=== PATIENT | male | born 1925 | race Caucasian/White ===

== ENCOUNTER 2016-06-27 15:56 | Inpatient (IN) | payer MEDICARE ==
--- NOTE | ~2016-06-27 | US77 ---
[facility] A Service of [facility] RADIOLOGY TEXT RESULTS PATIENT: EVA MELENDEZ LOCATION: [facility] 576-01 : [birth year] UNIT #: [id number] AGE: [address]: Delon Chavira MD SEX: M ORDER DR: [id number] [facility]. [place], [place] [address] [id number] I MR#: [id number] Acc #: [id number] NAME: EVA MELENDEZ : 1925 SEX: M STUDY DATE/TIME: 06/29/2016 9:09 UNIT: [facility] ROOM: [facility] STUDY DESCRIPTION: US Kidney Bilateral Complete Attending Physician: Delon Chavira M.D. Referring Physician: Delon Chavira M.D. Ordering Physician: Delon Chavira M.D. Primary Care Physician: Javier Moya M.D. MEDICAL IMAGING REPORT This report is preliminary unless electronic signature is present EXAM Renal ultrasound 06/29/2016 HISTORY 89-year-old male with acute renal failure and left flank pain for 2 days. Hypertension. Hyperlipidemia. BUN 44, creatinine 1.5, GFR 41. COMPARISON None. FINDINGS Real time rodriguez-scale and color Doppler imaging of the kidneys and urinary bladder was performed. Both kidneys are normal in size and contour. The right kidney measures 9.9 cm in length. The left kidney measures 9.3 cm in length. Cortical thickness and echogenicity are preserved bilaterally. No solid or cystic renal masses. No hydronephrosis. No pathologic calcifications. Urinary bladder is unremarkable. Bilateral ureteral jets. IMPRESSION Unremarkable renal ultrasound. Dictated by... Luan Contreras M.D. THIS IS AN ELECTRONICALLY VERIFIED REPORT Luan Contreras M.D. at 06/29/2016 2:13 PM Alejandrina TD: 06/29/2016 11:18 [facility] A Service of [facility] RADIOLOGY TEXT RESULTS PATIENT: EVA MELENDEZ LOCATION: [facility] 576-01 : [birth year] UNIT #: [id number] AGE: [address]: Delon Chavira MD SEX: M ORDER DR: JOB #: [id number] MEDICAL IMAGING REPORT Page 1 of 1 COPY
--- NOTE | ~2016-06-27 | HP ---
Unit #: [id number] #: [id number] Patient: EVA NICKERSON [id number] [facility]. [place], [place] [address] [id number] I MR#: [id number] NAME: EVA NICKERSON ROOM: 576 Age: Sex: M Admission Date: 06/27/2016 : 1925 Attending Physician: Delon Chavira M.D. Referring Physician: Delon Chavira M.D. Primary Care Physician: Javier Moya M.D. HISTORY AND PHYSICAL REASON FOR ADMISSION Congestive heart failure. HISTORY OF PRESENT ILLNESS Mr. Nickerson is an 89-year-old white male I had seen about five years ago for congestive heart failure and atrial fibrillation, but he was lost to followup as he moved to [place], [place] for his medical care. He returns today because of worsening leg edema, increasing abdominal girth, shortness of breath on minimal exertion. He cannot walk more than 100 feet on a level surface without having to stop for shortness of breath. He sleeps on two to three pillows and frequently awakens from sleep during the night for shortness of breath, accompanied by abdominal bloating and belching and this has worsened over the last year or so to an extent that he things he is getting weaker and would like help. On repeated questioning he denies any chest discomfort to suggest angina pectoris. He has not had any syncope, near syncope, but complains of frequent episodes of palpitations. There is no history of previous myocardial infarction or stroke, he was told to have a transient ischemic attack a number of years ago, probably related to cardioembolic event in view of atrial fibrillation. The patient is known to have atrial fibrillation for a number of years and underwent a permanent pacemaker implantation at least five years ago. He was told to have pulmonary hypertension, the etiology of which was never determined. PAST MEDICAL HISTORY 1. Chronic kidney disease. 2. Hypertension. 3. Hepatic enlargement. 4. Ascites. 5. Permanent atrial fibrillation. 6. 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 He was advised to undergo chemotherapy, but after consultation with his form tamper and oncologist it was decided not to pursue chemotherapy and status of metastatic disease, if any, is not known. SOCIAL HISTORY The patient stopped smoking a number of years ago and he thinks he never abused alcohol, though he does drink an alcoholic beverage reasonably regularly. Unit #: [id number] #: [id number] Patient: EVA NICKERSON FAMILY HISTORY Unremarkable. PHYSICAL EXAMINATION VITALS: Blood pressure 110/60. Atrial fibrillation is noted with a controlled ventricular rate of about 80 per minute. Jugular veins are distended to angles of mandible. There is 4+ leg edema up to the knees with open seeping wound in the left anterior leg, 4+ leg edema is noted on the right. CHEST: Good air entry bilaterally without any rales or rhonchi. HEART: Apical impulse is displaced out to the left anterior axillary line area. Both heart sounds are normal. Pulmonary component of the second heart sound is loud. There is a grade 1/6 systolic murmur at the apex. No diastolic murmurs are audible. ABDOMEN: Liver edges palpable 6 cm below the right costal margin, is pulsatile in nature and firm in consistency. There is a moderate amount of ascites. RECTAL: Not done. NEUROLOGIC: INSPECTOR BARREL examination is within normal limits. ASSESSMENT 1. Biventriculare failure. 2. Permanent atrial fibrillation. 3. Permanent pacemaker implantation. 4. History of pulmonary hypertension. 5. History of hyperlipidemia. 6. Cannot rule out underlying coronary artery disease. 7. Hepatomegaly and ascites secondary to pulmonary hypertension causing right heart failure, cannot rule out ethanol induced hepatic disease. 8. 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 PLAN The patient will be started on intravenous diuretic Bumex, fluid restriction will be started, clinically he appears to have systolic dysfunction and small dose dobutamine would be given. An echocardiogram and Doppler study will be evaluated for left ventricular function and pulmonary hypertension. Afterload reduction will be continued with lisinopril, but may have to add hydralazine if the blood pressure stabilizes. The patient will continue on small dose of beta jazmine to control heart rate. Further recommendations will depend upon results of the echocardiogram. I will request Drs. Zapien and Susan to manage his renal problems. Dictated by Reji Knutson TD: 06/27/2016 15:46 JOB #: [id number] CC: Reji Knutson M.D. Unit #: [id number] #: [id number] Patient: EVA NICKERSON HISTORY AND PHYSICAL Page 1 of 1 X Delon Chavira MD X HISTORY AND PHYSICAL
--- NOTE | ~2016-06-27 | EKG ---
PATIENT: EVA MELENDEZ UNIT #: [id number] Ventricular Rate: 64 BPM Atrial Rate: 394 BPM QRS Duration: 148 ms Q-T Interval: 456 ms QTC Calculation(Bezet): 470 ms Calculated R [place]: 73 degrees Calculated T [place]: -46 degrees Diagnosis Line: Atrial fibrillation Diagnosis Line: Right bundle branch block Diagnosis Line: T wave abnormality, consider inferolateral Diagnosis Line: ischemia Diagnosis Line: Abnormal ECG Diagnosis Line: When compared with ECG of 27-JUN-2016 16:48, Diagnosis Line: (unconfirmed) Diagnosis Line: Atrial fibrillation has replaced Electronic Diagnosis Line: ventricular pacemaker Diagnosis Line: Nonspecific ST and T wave abnormality is now Diagnosis Line: Present Diagnosis Line: Confirmed by PRIYA PEREZ MD ([id number]) on 06/29/2016 Diagnosis Line: 8:33:27 PM INTERPRETING MD: ANA GRIFFITHS
--- NOTE | ~2016-06-27 | CR63 ---
[facility] A Service of [facility] RADIOLOGY TEXT RESULTS PATIENT: EVA MELENDEZ LOCATION: [facility] 576-01 : [birth year] UNIT #: [id number] AGE: [address]: Delon Chavira MD SEX: M ORDER DR: [id number] [facility] [address] [place], [place] [address] [id number] I MR#: [id number] Acc #: [id number] NAME: EVA MELENDEZ : 1925 SEX: M STUDY DATE/TIME: 06/27/2016 16:10 UNIT: [facility] ROOM: [facility] STUDY DESCRIPTION: CR Chest 2 View Attending Physician: Delon Chavira M.D. Referring Physician: Delon Chavira M.D. Ordering Physician: Delon Chavira M.D. Primary Care Physician: Javier Moya M.D. MEDICAL IMAGING REPORT This report is preliminary unless electronic signature is present EXAM PA and lateral chest 06/27/2016 INDICATIONS Possible cardiac arrest. Shortness of air symptoms for 5 months. COMPARISON 03/28/2013. FINDINGS A portable view of the chest was obtained. The heart is enlarged. Vascularity is normal. The lungs clear except for perhaps a tiny right effusion. Dual lead pacemaker is in good position. IMPRESSION Marked cardiomegaly with a tiny right effusion. Otherwise no active disease. Dictated by... Tico Lundberg M.D. THIS IS AN ELECTRONICALLY VERIFIED REPORT Tico Lundberg M.D. at 06/28/2016 2:00 PM AMAN/geneva TD: 06/28/2016 01:36 JOB #: [id number] MEDICAL IMAGING REPORT Page 1 of 1 COPY
--- NOTE | ~2016-06-27 | DS ---
Unit #: [id number] #: [id number] Patient: EVA MELENDEZ [id number] [address] [place], [place] [address] [id number] I MR#: [id number] NAME: EVA MELENDEZ ROOM: 576 Age: 89 Sex: M Admission Date: 06/27/2016 : 1925 Discharge Date: Attending Physician: Delon Chavira M.D. Referring Physician: Delon Chavira M.D. Primary Care Physician: Javier Moya M.D. DISCHARGE SUMMARY DISCHARGE DIAGNOSES 1. Acute diastolic heart failure with preserved ejection fraction of 65%. 2. 2D echocardiogram 06/28/2016 shows an ejection fraction equal to 65% to 70% with grade 3 diastolic dysfunction with restrictive physiology. Mildly dilated right ventricle. Aortic valve mildly thickened with normal gradient. [id number] aortic regurgitation, moderate tricuspid regurgitation. Right ventricular systolic pressure 55-60 mmHg consistent with moderately severe pulmonary hypertension. 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 3. Permanent atrial fibrillation with a controlled ventricular rate on anticoagulation with Eliquis. 4. Iron-deficiency anemia. 5. Acute kidney injury, resolved. 6. Hypertension. 7. Hyperlipidemia. 8. Hepatomegaly with ascites. DISCHARGE MEDICATIONS 1. Bumex 1 mg daily. 2. Latanoprost one drop left eye h.s. 3. Hydralazine 25 mg b.i.d. 4. Lisinopril 5 mg daily. 5. Protonix 40 mg daily. 6. Eliquis 2.5 mg b.i.d. 7. Trazodone 50 mg h.s. 8. Carvedilol 6.25 mg b.i.d. 9. Timoptic 0.5% optic solution one drop left eye q.a.m. 10. Docusate sodium 100 mg b.i.d. 11. Potassium chloride 20 mEq daily. HOSPITAL COURSE This is an 89-year-old white male who is known to Dr. Chavira who presented to the hospital with complaint of worsening leg edema and increase in his abdominal girth and shortness of breath. The patient was placed on 1200 mL fluid restriction and started on a Bumex drip. It was initially felt that the patient had biventricular heart failure and dobutamine drip was also started. It was later discontinued. Echocardiogram found the patient to have normal left ventricular ejection fraction with grade 3 diastolic dysfunction. There was also moderately severe pulmonary hypertension. The patient was noted to be in acute kidney injury on admission with creatinine of 1.5. Renal was asked to see the patient. Bumex was changed Unit #: [id number] #: [id number] Patient: EVA MELENDEZ to 2 mg b.i.d. Renal ultrasound was unremarkable. His creatinine improved as well as his dyspnea. He was severely anemic with hemoglobin of 7.0 that dropped as low as 6.5. This was treated with 2 units of packed red blood cells as per renal. He received 5 days of IV Venofer. Hemoglobin today is 8.0. The patient was continued on afterload reduction with lisinopril. Carvedilol was added to his regimen. Heart failure improved. The patient was seen by physical therapy where he ambulated without difficulty. They felt he can return to [facility] where he resides. He is stable for discharge today. ASSESSMENT VITAL SIGNS: Blood pressure 102/61, heart rate 79, temperature 98.3. CHEST: Clear to auscultation. HEART: S1, S2 with irregularly irregular rhythm. ABDOMEN: Soft, nontender, with bowel wounds present. EXTREMITIES: Without leg edema. DIAGNOSTIC STUDIES LABORATORY: Glucose 174, BUN 28, creatinine 1.0, sodium 134, potassium 3.8. Iron level 8, TIBC 556, transferrin 1, B12 1044, folate 20.7, ferritin 15, transferrin 397. White count 8.0, hemoglobin 8.0, hematocrit 26.3, platelet count 182. IMAGING: Renal ultrasound unremarkable. CARDIOVASCULAR: Rhythm strip shows atrial fibrillation with an occasional premature ventricular complex. DISCHARGE INSTRUCTIONS 1. Patient will be discharged back to [facility]. 2. Follow up with Dr. Chavira on 10/02/2016 at 1:45 p.m. 3. Patient will continue on 1800 mL fluid restriction. 4. Hemoglobin has improved after Venofer. Will repeat CBC on with results faxed to our office. He may need another GI workup as an outpatient. Dictated by... Power Sotomayor A.P.R.N. for Reji Knutson/remigio TD: 07/02/2016 17:08 JOB #: [id number] Unit #: [id number] #: [id number] Patient: EVA MELENDEZ DISCHARGE SUMMARY Page 1 of 1 X Power Sotomayor APRN X DISCHARGE SUMMARY
--- NOTE | ~2016-06-27 | CO ---
Unit #: [id number] #: [id number] Patient: EVA NICKERSON [id number] [address] [place], [place] [address] [id number] I MR#: [id number] NAME: EVA NICKERSON ROOM: 576 Age: 89 Sex: M Admission Date: 06/27/2016 : 1925 Attending Physician: Delon Chavira M.D. Primary Care Physician: Javier Moya M.D. CONSULTATION REPORT REASON FOR CONSULTATION Acute kidney injury. HISTORY OF PRESENT ILLNESS Mr. Nickerson is an 89-year-old white male with a past medical history of hypertension; chronic kidney disease stage 3 with last creatinine before leaving town 1.3 mg/dL in 2012; biventricular congestive heart failure, status post permanent pacemaker, who came into the hospital because of increasing shortness of air and dyspnea on exertion. His creatinine at the time of admission was 1.5 mg/dL. So, we were consulted to help in management of his acute kidney injury. The patient was started yesterday on Bumex and dobutamine drip. He stated that he feels better today. He has been making very good amount of urine. PAST MEDICAL HISTORY 1. Chronic kidney disease, stage 3. 2. Hypertension. 3. Biventricular congestive heart failure, status post pacemaker. 4. Atrial fibrillation. SOCIAL HISTORY The patient quit smoking a few years ago. Denies drinking or illicit drug abuse. FAMILY HISTORY Noncontributory. HOME MEDICATIONS Reviewed and it is in the chart. REVIEW OF SYSTEMS A 12-point review of systems was conducted and they were all negative except what was per history of present illness. PHYSICAL EXAMINATION GENERAL: Alert and oriented x3, in no acute distress. VITAL SIGNS: Blood pressure 120/65, heart rate 84, respiratory rate 16, O2 sat 98%. HEENT: Head; normocephalic and atraumatic. Pupils are equal, round, and reactive to light and accommodation. Extraocular muscle intact. NECK: No thyromegaly. Neck is supple. CHEST: Good air entry without any rales or rhonchi. HEART: Irregularly irregular. S1, S2 normal with 1/6 systolic ejection murmur. Unit #: [id number] #: [id number] Patient: EVA NICKERSON ABDOMEN: Bowel sounds positive. No tenderness. No guarding. Positive for hepatomegaly and moderate ascites. EXTREMITIES: Trace edema. No cyanosis. No clubbing. PSYCHIATRIC: Affect is normal. DIAGNOSTIC STUDIES LABORATORY RESULTS: Hemoglobin 7, white blood cells 9.3. Sodium 125, chloride 95, bicarb 23, BUN 53, creatinine 1.5, calcium 8.2. ASSESSMENT AND PLAN 1. Acute kidney injury on chronic kidney disease, stage 3, likely due to decrease renal blood flow secondary to congestive heart failure and his severe anemia. I am going to switch him to Bumex 2 mg IV b.i.d., awaiting his labs from today. I will obtain renal ultrasound. I will avoid all nephrotoxic medications. 2. Dyspnea, likely combination of his severe anemia and his congestive heart failure. We will transfuse 3 units of blood and switch him to Bumex 2 mg IV b.i.d. Awaiting for his blood work today. 3. Severe anemia. We will obtain iron profile, B12, and folic acid level. Workup per primary care physician. Transfuse 3 units of blood. 4. History of atrial fibrillation, status post permanent pacemaker. I would like to thank, Dr. Delon Chavira, for allowing us to take care of this patient. Dictated by.Jason. Reji Evans/surekha TD: 06/28/2016 20:16 JOB #: [id number] CONSULTATION REPORT Page 1 of 1 X X CONSULTATION REPORT
[~2016-06-27 15:56] MED LIST: ACETAMINOPHEN PO; AMLODIPINE BESYL5 MG PO; CALCIUM + D 6001 TA1 PO; COUMADIN4 MG PO; GLUCOSAMINE & C1 CAP PO; K-DUR20 ME2 PO; KEFLEX500 M1 PO; LASIX80 MG PO; LIPITOR20 MG PO; LISINOPRIL20 MG PO; METOPROLOL TAR25 MG PO; PROAIR HFA8.5 GM IN; TIMOPTIC 0.5% OP5 M1 OU; VITAMIN C PO; VITAMIN D PO; WARFARIN SODIUM2 M1 PO; XALATAN OP; ZOLPIDEM TARTRAT5 MG PO
[2016-06-27 16:49] LABS: URINE APPEARANCE CLEAR; URINE BILIRUBIN NEG (NEG); URINE BLOOD NEG (NEG); URINE COLOR YELLOW; URINE GLUCOSE NEG (NEG); URINE KETONE NEG (NEG); URINE LEUKOCYTE ESTERASE NEG (NEG); URINE NITRATE NEG (NEG); URINE PH 7.5 (5-8); URINE PROTEIN 1+ (NEG); URINE SPECIFIC GRAVITY 1.009 (1.003-1.035); URINE UROBILINOGEN 0.2 MG/DL (NEG)
[2016-06-27 16:51] LABS: BASOPHIL# 0.1 X10e3 (0-0.3); BASOPHIL% 0.8 % (0-2.5); EOSINOPHIL# 0.2 X10e3 (0-0.7); EOSINOPHIL% 1.7 % (0.0-7.0); HEMATOCRIT 22.6 % (38.0-50.0); LYMPHOCYTE# 0.7 X10e3 (1.0-3.5); LYMPHOCYTE% 7.2 % (17.0-45.0); MEAN CELL VOLUME 76.5 FL (83-96); MEAN CORPUSCULAR HEMOGLOBIN 23.5 PG (28-34); MEAN CORPUSCULAR HGB CONC 30.7 g/dL (30-36); MEAN PLATELET VOLUME 7.7 FL (6.5-11.5); MONOCYTE# 1.3 X10e3 (0-1.0); MONOCYTE% 13.6 % (3.0-12.0); NEUTROPHIL# 7.1 X10e3 (1.5-7.1); NEUTROPHIL% 76.7 % (40-75); PLATELET COUNT 187 X10e3 (140-420); RED BLOOD COUNT 2.96 X10e (3.90-5.60); RED CELL DISTRIBUTION WIDTH 21.2 % (11.0-15.5); WHITE BLOOD COUNT 9.3 X10e3 (4.0-10.5)
[2016-06-27 16:52] LABS: U HYALINE CASTS AUWI 0-2 /[LPF]; URBCS1 AUWI 0-2 /[HPF] (0-2); URINE BACTERIA AUWI NEG (NEGATIVE); URINE SQUAMOUS EPITHELIAL CELL NONE SEEN /[HPF]; UWBCS1 AUWI 0-2 (0-5)
[2016-06-27 17:12] LABS: ALBUMIN SERUM 4.1 g/dL (3.5-5.0); BILIRUBIN,TOTAL 0.8 mg/dL (0.2-2.0); BUN/CREATININE RATIO 35.33; CALCIUM SERUM 8.2 mg/dL (8.4-10.2); CREATININE SERUM 1.5 mg/dL (0.6-1.4); POTASSIUM 5.1 mmol/L (3.5-5.1); PROTEIN TOTAL SERUM 6.8 g/dL (6.0-8.3)
[2016-06-27 17:28] LABS: DIFF IND YES
[2016-06-27 17:35] LABS: PLATELET ESTIMATE NORMAL (NORMAL)
[2016-06-27] MEDS ORDERED: LISINOPRIL5 MG PO (18:15)
[2016-06-27] MEDS ORDERED: ELIQUIS2.5 MG PO (18:15)
[2016-06-27] MEDS ORDERED: DESYREL50 MG PO (18:16)
[2016-06-27] MEDS ORDERED: PROTONIX PO (18:16)
[2016-06-28 12:10] LABS: BASOPHIL% 0.3 % (0-2.5); EOSINOPHIL# 0.1 X10e3 (0-0.7); EOSINOPHIL% 1.3 % (0.0-7.0); LYMPHOCYTE# 0.4 X10e3 (1.0-3.5); LYMPHOCYTE% 5.6 % (17.0-45.0); MEAN CELL VOLUME 75.7 FL (83-96); MEAN CORPUSCULAR HEMOGLOBIN 23.3 PG (28-34); MEAN CORPUSCULAR HGB CONC 30.8 g/dL (30-36); MEAN PLATELET VOLUME 7.3 FL (6.5-11.5); MONOCYTE# 0.8 X10e3 (0-1.0); MONOCYTE% 10.7 % (3.0-12.0); NEUTROPHIL# 5.9 X10e3 (1.5-7.1); NEUTROPHIL% 82.1 % (40-75); PLATELET COUNT 176 X10e3 (140-420); RED BLOOD COUNT 2.78 X10e (3.90-5.60); RED CELL DISTRIBUTION WIDTH 21.2 % (11.0-15.5); WHITE BLOOD COUNT 7.2 X10e3 (4.0-10.5)
[2016-06-28 12:13] LABS: DIFF IND NO; HEMOGLOBIN 6.5 gm/dL (13.0-16.0)
[2016-06-28 12:43] LABS: BUN/CREATININE RATIO 31.33; CALCIUM SERUM 8.2 mg/dL (8.4-10.2); CREATININE SERUM 1.5 mg/dL (0.6-1.4); MAGNESIUM 1.9 mg/dL (1.6-3.0)
[2016-06-28 12:46] LABS: POTASSIUM 3.5 mmol/L (3.5-5.1)
[2016-06-28 15:09] LABS: IRON SERUM 8 ug/dL (45-182); TOTAL IRON BINDING CAPACITY 556 ug/dL (252-460); TRANSFERRIN 397 mg/dL (180-329); TRANSFERRIN SATURATION 1 % (20-50)
[2016-06-28 15:30] LABS: FOLATE (FOLIC ACID) 20.7 ng/mL (>5.8)
[2016-06-29 05:59] LABS: HEMATOCRIT 24.3 % (38.0-50.0); HEMOGLOBIN 7.7 gm/dL (13.0-16.0); MEAN CORPUSCULAR HGB CONC 31.6 g/dL (30-36); MEAN PLATELET VOLUME 7.4 FL (6.5-11.5); RED BLOOD COUNT 3.2 X10e (3.90-5.60); RED CELL DISTRIBUTION WIDTH 21.3 % (11.0-15.5); WHITE BLOOD COUNT 7.8 X10e3 (4.0-10.5)
[2016-06-29 06:44] LABS: ALBUMIN SERUM 3.5 g/dL (3.5-5.0); BILIRUBIN,TOTAL 2.9 mg/dL (0.2-2.0); BUN/CREATININE RATIO 29.33; CALCIUM SERUM 8.5 mg/dL (8.4-10.2); CREATININE SERUM 1.5 mg/dL (0.6-1.4); PHOSPHOROUS 3.5 mg/dL (2.5-4.6); POTASSIUM 4.2 mmol/L (3.5-5.1); PROTEIN TOTAL SERUM 5.7 g/dL (6.0-8.3)
[2016-06-30 06:11] LABS: BUN/CREATININE RATIO 27.27; CALCIUM SERUM 8.6 mg/dL (8.4-10.2); CREATININE SERUM 1.1 mg/dL (0.6-1.4); GLOM FILT RATE Estimated 59.6 mL/min (>60); MAGNESIUM 2.1 mg/dL (1.6-3.0); POTASSIUM 3.7 mmol/L (3.5-5.1)
[2016-07-01 06:46] LABS: BUN/CREATININE RATIO 21.81; CALCIUM SERUM 8.6 mg/dL (8.4-10.2); CREATININE SERUM 1.1 mg/dL (0.6-1.4); GLOM FILT RATE Estimated 59.6 mL/min (>60); MAGNESIUM 2.2 mg/dL (1.6-3.0); POTASSIUM 3.8 mmol/L (3.5-5.1)
[2016-07-01 10:11] LABS: HEMATOCRIT 24.5 % (38.0-50.0); HEMOGLOBIN 7.6 gm/dL (13.0-16.0); MEAN CELL VOLUME 76.7 FL (83-96); MEAN CORPUSCULAR HEMOGLOBIN 23.9 PG (28-34); MEAN CORPUSCULAR HGB CONC 31.2 g/dL (30-36); MEAN PLATELET VOLUME 7.5 FL (6.5-11.5); RED BLOOD COUNT 3.19 X10e (3.90-5.60); RED CELL DISTRIBUTION WIDTH 22.1 % (11.0-15.5); WHITE BLOOD COUNT 8.8 X10e3 (4.0-10.5)
[2016-07-02 09:57] LABS: CALCIUM SERUM 8.9 mg/dL (8.4-10.2); GLOM FILT RATE Estimated 66.9 mL/min (>60); POTASSIUM 3.8 mmol/L (3.5-5.1)
[2016-07-02 12:49] LABS: HEMATOCRIT 26.3 % (38.0-50.0); MEAN CORPUSCULAR HEMOGLOBIN 23.9 PG (28-34); MEAN CORPUSCULAR HGB CONC 30.6 g/dL (30-36); MEAN PLATELET VOLUME 7.1 FL (6.5-11.5); RED BLOOD COUNT 3.37 X10e (3.90-5.60); RED CELL DISTRIBUTION WIDTH 22.6 % (11.0-15.5)
== END 2016-07-02 18:44 | disposition home or self-care (01) | DRG 291 ==
LOC: CEKG 15:56 → C5C 17:18
PROVIDERS: Internal Medicine Cardiovascular Disease; Internal Medicine Nephrology; Nurse Practitioner; Physician Assistant Medical
PROC: B24BZZZ Ultrasonography of Heart with Aorta (ICD-10-PCS; 2016-06-27)
PROC: 30233N1 Transfusion of Nonautologous Red Blood Cells into Peripheral Vein, Percutaneous Approach (ICD-10-PCS; principal; 2016-06-28)
DX: I13.0 Hypertensive heart and chronic kidney disease with heart failure and stage 1 through stage 4 chronic kidney disease, or unspecified chronic kidney disease (principal); I50.31 Acute diastolic (congestive) heart failure; N17.9 Acute kidney failure, unspecified; R18.8 Other ascites; I27.2 Other secondary pulmonary hypertension; I08.2 Rheumatic disorders of both aortic and tricuspid valves; R16.0 Hepatomegaly, not elsewhere classified; I48.2 Chronic atrial fibrillation; Z79.01 Long term (current) use of anticoagulants; N18.3 Chronic kidney disease, stage 3 (moderate); I77.819 Aortic ectasia, unspecified site; D50.9 Iron deficiency anemia, unspecified; E78.5 Hyperlipidemia, unspecified; Z87.891 Personal history of nicotine dependence; Z86.73 Personal history of transient ischemic attack (TIA), and cerebral infarction without residual deficits; Z95.0 Presence of cardiac pacemaker
CPT/HCPCS: 36415; 71020; 76770; 80048; 80053; 81003; 82274; 82607; 82728; 82746; 83540; 83550; 83735; 83880; 84100; 84132; 85025; 85027; 86850; 86900; 86901; 86923; 93005; 93306; 94640; 94664; 94760; 94762; 97110; 97116; 97162; 97166; 97530; G8978-GP; G8979-GP; G8987-GO; G8988-GO; G8989-GO; J1250; J2916; P9016

== ENCOUNTER 2016-07-31 11:15 | Inpatient (IN) | payer MEDICARE ==
--- NOTE | ~2016-07-31 | OR ---
Unit #: [id number] #: [id number] Patient: EVA MELENDEZ [id number] [address] [place], [place] [address] [id number] I MR#: [id number] NAME: EVA MELENDEZ ROOM: 217 Date of Procedure: 07/31/2016 Admission Date: 07/31/2016 Surgeon: Quincy Sánchez M.D. : 1925 Attending Physician: Quincy Sánchez M.D. Referring Physician: Quincy Sánchez M.D. Primary Care Physician: Quincy Sánchez M.D. OPERATIVE REPORT PREOPERATIVE DIAGNOSIS Infected left groin lymphocele. POSTOPERATIVE DIAGNOSIS Infected left groin lymphocele. PROCEDURE PERFORMED Incision and drainage of left groin lymphocele. ANESTHESIA 1% Xylocaine local with MAC. ESTIMATED BLOOD LOSS 25 mL. COMPLICATIONS None. 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 He now presents with pain, fever, and redness over his left groin fluid collection. An ultrasound confirmed a fluid collection in his left groin beneath his old surgical scar. He was taken to the operating room urgently to undergo incision and drainage of his infected left groin lymphocele. DESCRIPTION OF PROCEDURE The patient was placed in supine position. His left groin was prepped and sterilely draped. 1% Xylocaine was used to infiltrate the skin and subcutaneous tissue in the old oblique surgical scar. An incision was made through the old scar. Dissection continued through the subcutaneous tissue down to the infected fluid pocket. The fluid was released under pressure. Culture swabs of the fluid were obtained and sent to the lab. The pocket was unroofed completely to ensure that bandage changes could be performed. The fibrous capsule in the wound was excised from much of the surface of the pocket. There was no active lymph leak demonstrated. Hemostasis was achieved in the wound with the use of electrocautery. The wound was irrigated with normal saline. The wound was then packed with normal Unit #: [id number] #: [id number] Patient: EVA MELENDEZ saline soaked gauze. Sterile dressings were applied. Sponge and needle count were correct. The patient tolerated the procedure well and was taken to the postanesthesia care unit in satisfactory condition. Dictated by... Reji Banks/surekha TD: 08/01/2016 02:20 JOB #: [id number] CC: Javier Moya M.D. OPERATIVE REPORT Page 1 of 1 X Quincy Sánchez MD X PROCEDURE OPERATIVE NOTE
--- NOTE | ~2016-07-31 | EKG ---
PATIENT: EVA MELENDEZ UNIT #: [id number] Ventricular Rate: 79 BPM Atrial Rate: 79 BPM P-R Interval: 200 ms QRS Duration: 148 ms Q-T Interval: 438 ms QTC Calculation(Bezet): 502 ms Calculated R Yoder: -16 degrees Calculated T Yoder: -16 degrees Diagnosis Line: Normal sinus rhythm Diagnosis Line: Right bundle branch block Diagnosis Line: Minimal voltage criteria for LVH, may be normal Diagnosis Line: variant Diagnosis Line: Abnormal ECG Diagnosis Line: When compared with ECG of 27-JUN-2016 16:49, Diagnosis Line: Sinus rhythm has replaced Atrial fibrillation Diagnosis Line: T wave inversion less evident in Inferior leads Diagnosis Line: T wave inversion less evident in Anterolateral Diagnosis Line: leads Diagnosis Line: Confirmed by PRIYA PEREZ MD ([id number]) on 07/31/2016 Diagnosis Line: 6:56:21 PM INTERPRETING MD: ANA GRIFFITHS
--- NOTE | ~2016-07-31 | DS ---
Unit #: [id number] #: [id number] Patient: EVA MELENDEZ [id number] [address] [address] [id number] I MR#: [id number] NAME: EVA MELENDEZ ROOM: 217 Age: 89 Sex: M Admission Date: 07/31/2016 : 1925 Discharge Date: 08/05/2016 Attending Physician: Quincy Sánchez M.D. Referring Physician: Quincy Sánchez M.D. Primary Care Physician: Quicny Sánchez M.D. DISCHARGE SUMMARY CONSULTANTS None. ADMISSION DIAGNOSIS Infected left groin lymphocele. HOSPITAL COURSE On July 31, 2016, Mr. Melendez came to [facility] for an infected left groin lymphocele. He underwent drainage. He remained hospitalized until August 05, 2016. He underwent CTA imaging which demonstrated that his left leg stent was patent. He underwent wound culture throughout this time which demonstrated that his left groin was infected with staphylococcus coag negative. He had previously been maintained on vancomycin therapy while hospitalized. He will be discharged home on Bactrim therapy. ASSESSMENT/VITAL SIGNS Temperature 97.8 at discharge, heart rate 77, and blood pressure 120/60. DIAGNOSTIC STUDIES LABORATORY: Sodium 137, potassium 4.1, chloride 99, CO2 of 30, BUN 19, creatinine 1.1, and glucose 82. Hemoglobin 8.1, hematocrit 25.5, WBC 5.2, and platelets 218,000. DISPOSITION [facility]. Wound V.A.C. therapy has been arranged to continue there. DISCHARGE ORDERS 1. Discharge to [facility]. 2. Continue wound V.A.C. therapy. 3. No heavy lifting x2 weeks. 4. Resume regular diet. 5. Discharge and remove all IVs. 6. Weightbearing with ambulation as tolerated. 7. Prescription written for Bactrim DS x14 days q.12 hours. 8. Follow up with Dr. Quincy Sánchez in two weeks. 9. All other home medications have remained unchanged. DISCHARGE DISPOSITION [facility]. CONDITION Stable. Unit #: [id number] #: [id number] Patient: EVA MELENDEZ Dictated by... Harvey Tolentino APRN for Reji Banks/dalila TD: 08/05/2016 14:48 JOB #: [id number] DISCHARGE SUMMARY Page 1 of 1 X X DISCHARGE SUMMARY
--- NOTE | ~2016-07-31 | CT14 ---
[facility] A Service of [facility] & [facility] RADIOLOGY TEXT RESULTS PATIENT: EVA MELENDEZ LOCATION: C2A 217-01 : [birth year] UNIT #: [id number] AGE: [address]: Quincy Sánchez MD SEX: M ORDER DR: [id number] [facility] [address] [place], [place] [address] [id number] MR#: [id number] #: [id number] NAME: EVA MELENDEZ : 1925 SEX: M STUDY DATE/TIME: 08/04/2016 17:17 UNIT: [facility] ROOM: [facility] STUDY DESCRIPTION: CT Angio Abdomen and Pelvis Attending Physician: Quincy Sánchez M.D. Referring Physician: Quincy Sánchez M.D. Ordering Physician: Quincy Sánchez M.D. Primary Care Physician: Quincy Sánchez M.D. MEDICAL IMAGING REPORT This report is preliminary unless electronic signature is present EXAM CT abdomen and pelvis with angiographic reconstructions. INDICATIONS Left groin wound. 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 Stent was placed yesterday. TECHNIQUE Initially, unenhanced images were obtained through the abdomen and pelvis and then the patient was given 100 mL of Isovue 370 and spiral imaging was performed through the abdomen and pelvis during the arterial phase. Then, 90-second delayed images were obtained. This CT exam was performed with one or more of the following radiation dose reduction techniques: automatic exposure control, adjustment of mA and/or kV according to patient size, and iterative reconstruction. FINDINGS There is a small loculated right pleural effusion with minimal right base atelectasis. There is cardiomegaly with a small pericardial effusion. There is minimal ascites around the liver. There are no focal liver lesions. Caudate lobe is slightly prominent. Spleen is normal in size. The gallbladder, pancreas, adrenal glands, and kidneys are normal. There are postoperative changes involving the right colon. The bowel appears normal. The bladder and prostate gland are normal. VASCULAR FINDINGS: The abdominal aorta is normal in size. The celiac artery and superior mesenteric artery are patent. There are single renal arteries bilaterally and they are patent without significant stenosis. 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 The stent is patent. The aneurysm is about 1.7 cm in diameter. The stent extends down to the external iliac level. The external iliac STS. [facility] A Service of [facility] RADIOLOGY TEXT RESULTS PATIENT: EVA MELENDEZ LOCATION: [facility] [address] : [birth year] UNIT #: [id number] AGE: [address]: Quincy Sánchez MD SEX: M ORDER DR: artery on both sides appears patent. Common femoral arteries are patent. There is soft tissue density in the left groin measuring about 4.8 cm x 2.8 cm x 3 cm. This has a defect in the anterior portion consistent with a wound. There is a small amount of air within this area. This is in front of the common femoral artery. IMPRESSION 1. The left common iliac artery stent is patent and there is no visible stenosis in the aorta or iliac vessels. The excluded portion of the common iliac artery aneurysm does not show any evidence of opacification. 2. There is an abnormality in the left groin, which is about 3 cm in maximum dimension. It is a soft tissue area of density just beneath the skin and has defect in the anterior portion involving the skin consistent with the wound mentioned in the history. This does not extend all the way down to the vessels. 3. Mild hepatomegaly. 4. Small right pleural effusion. Dictated by... Tico Lundberg M.D. THIS IS AN ELECTRONICALLY VERIFIED REPORT Tico Lundberg M.D. at 08/05/2016 1:25 PM AMAN/[place] TD: 08/05/2016 09:02 JOB #: [id number] MEDICAL IMAGING REPORT Page 1 of 1 COPY
[~2016-07-31 11:15] MED LIST changes: +DESYREL50 MG PO; +ELIQUIS2.5 MG PO; +LISINOPRIL5 MG PO; +PROTONIX PO
[2016-07-31] MEDS ORDERED: ACETAMINOPHEN325 MG PO (11:45)
[2016-07-31] MEDS ORDERED: CYANOCOBALAM1000 MCG PO (11:46)
[2016-07-31] MEDS ORDERED: ARTIFICIAL TEA1 EACH OU (11:46)
[2016-07-31] MEDS ORDERED: COLACE PO ×2 (11:47→11:48)
[2016-07-31] MEDS ORDERED: COREG3.125 MG PO (11:47)
[2016-07-31] MEDS ORDERED: DULCOLAX10 MG (11:48)
[2016-07-31] MEDS ORDERED: ALLEGRA ALLERG180 MG PO (11:50)
[2016-07-31] MEDS ORDERED: IRON45 MG PO (11:50)
[2016-07-31] MEDS ORDERED: LATANOPROST2.5 ML OS (11:51)
[2016-07-31] MEDS ORDERED: LASIX PO (11:51)
[2016-07-31] MEDS ORDERED: MILK OF MAGNESIA PO (11:52)
[2016-07-31] MEDS ORDERED: K-DUR20 ME1 PO (11:52)
[2016-07-31] MEDS ORDERED: TIMOLOL MALEATE5 M1 OS (11:54)
[2016-07-31] MEDS ORDERED: ALBUTEROL17 GM INH (11:55)
[2016-07-31 12:28] LABS: BASOPHIL% 0.4 % (0-2.5); EOSINOPHIL# 0.1 X10e3 (0-0.7); EOSINOPHIL% 1.9 % (0.0-7.0); HEMATOCRIT 28.4 % (38.0-50.0); HEMOGLOBIN 9.1 gm/dL (13.0-16.0); LYMPHOCYTE# 0.7 X10e3 (1.0-3.5); LYMPHOCYTE% 10.2 % (17.0-45.0); MEAN CORPUSCULAR HEMOGLOBIN 25.9 PG (28-34); MEAN CORPUSCULAR HGB CONC 31.9 g/dL (30-36); MEAN PLATELET VOLUME 7.1 FL (6.5-11.5); MONOCYTE# 0.7 X10e3 (0-1.0); MONOCYTE% 9.6 % (3.0-12.0); NEUTROPHIL# 5.5 X10e3 (1.5-7.1); NEUTROPHIL% 77.9 % (40-75); PLATELET COUNT 189 X10e3 (140-420); RED BLOOD COUNT 3.51 X10e (3.90-5.60); WHITE BLOOD COUNT 7.1 X10e3 (4.0-10.5)
[2016-07-31 12:31] LABS: DIFF IND YES
[2016-07-31 12:44] LABS: CALCIUM SERUM 8.4 mg/dL (8.4-10.2); CREATININE SERUM 0.9 mg/dL (0.6-1.4); POTASSIUM 3.8 mmol/L (3.5-5.1)
[2016-07-31 13:02] LABS: PLATELET ESTIMATE NORMAL (NORMAL)
[2016-07-31 13:03] LABS: ANISOCYTOSIS MOD; POIKILOCYTOSIS MOD
[2016-07-31 13:04] LABS: HYPOCHROMIA SL
[2016-08-01 06:13] LABS: MEAN CELL VOLUME 80.5 FL (83-96); MEAN CORPUSCULAR HEMOGLOBIN 25.7 PG (28-34); MEAN CORPUSCULAR HGB CONC 31.9 g/dL (30-36); MEAN PLATELET VOLUME 7.3 FL (6.5-11.5); RED BLOOD COUNT 3.11 X10e (3.90-5.60); WHITE BLOOD COUNT 5.5 X10e3 (4.0-10.5)
[2016-08-01 07:01] LABS: BUN/CREATININE RATIO 18.88; CALCIUM SERUM 8.3 mg/dL (8.4-10.2); CREATININE SERUM 0.9 mg/dL (0.6-1.4); POTASSIUM 4.3 mmol/L (3.5-5.1)
[2016-08-02 07:03] LABS: CALCIUM SERUM 8.3 mg/dL (8.4-10.2); CREATININE SERUM 0.9 mg/dL (0.6-1.4); POTASSIUM 4.1 mmol/L (3.5-5.1)
[2016-08-03 06:30] LABS: BUN/CREATININE RATIO 16.66; CALCIUM SERUM 8.3 mg/dL (8.4-10.2); CREATININE SERUM 0.9 mg/dL (0.6-1.4); POTASSIUM 4.1 mmol/L (3.5-5.1)
[2016-08-04 06:58] LABS: HEMATOCRIT 25.5 % (38.0-50.0); HEMOGLOBIN 8.1 gm/dL (13.0-16.0); MEAN CELL VOLUME 79.6 FL (83-96); MEAN CORPUSCULAR HEMOGLOBIN 25.4 PG (28-34); MEAN CORPUSCULAR HGB CONC 31.9 g/dL (30-36); MEAN PLATELET VOLUME 7.4 FL (6.5-11.5); RED BLOOD COUNT 3.2 X10e (3.90-5.60); RED CELL DISTRIBUTION WIDTH 26.3 % (11.0-15.5); WHITE BLOOD COUNT 5.2 X10e3 (4.0-10.5)
[2016-08-04 07:03] LABS: BUN/CREATININE RATIO 17.27; CALCIUM SERUM 8.5 mg/dL (8.4-10.2); CREATININE SERUM 1.1 mg/dL (0.6-1.4); GLOM FILT RATE Estimated 59.6 mL/min (>60); POTASSIUM 4.1 mmol/L (3.5-5.1)
== END 2016-08-05 16:41 | DRG 857 ==
LOC: CSUR 11:15 → CPACUOF 13:30 → C2A 13:30 → CPACUOF 13:40 → CSUR 13:40 → CPACUOF 14:18 → C2A 14:18
PROVIDERS: Surgery Vascular Surgery
PROC: 0J980ZZ Drainage of Abdomen Subcutaneous Tissue and Fascia, Open Approach (ICD-10-PCS; principal; 2016-07-31 14:00)
PROC: B42CYZZ Computerized Tomography (CT Scan) of Pelvic Arteries using Other Contrast (ICD-10-PCS; 2016-08-04)
PROC: B42HYZZ Computerized Tomography (CT Scan) of Bilateral Lower Extremity Arteries using Other Contrast (ICD-10-PCS; 2016-08-04)
PROC: B421YZZ Computerized Tomography (CT Scan) of Celiac Artery using Other Contrast (ICD-10-PCS; 2016-08-04)
PROC: B420YZZ Computerized Tomography (CT Scan) of Abdominal Aorta using Other Contrast (ICD-10-PCS; 2016-08-04)
DX: T81.4XXA Infection following a procedure, initial encounter (principal); L03.314 Cellulitis of groin; I89.8 Other specified noninfective disorders of lymphatic vessels and lymph nodes
CPT/HCPCS: 74174; 80048; 80202; 85025; 85027; 87070; 87075; 87077; 87186; 87205; 93005; 94760; 97161; G8978-GP; G8979-GP; G8980-GP; J0690; J2250; J3010; J3370; Q9967